=== PATIENT | female | born 1970 | race Caucasian/White ===

== ENCOUNTER 2016-12-08 16:14 | Emergency (ER) | payer OTHER ==
[~2016-12-08] VITALS: Ht 157.5 cm; Wt 135.0 kg
[2016-12-08 16:15] VITALS: BP 230/118; PULSE 105; RESP 20; TEMP 98.9; O2SAT 98
--- NOTE | 2016-12-08 16:28 | PD ---
Physical Exam Time Seen by Provider: 16:26 Narrative 46yo F c/o cyst to R inner, upper thigh for the past few days with worsening. Denies drainage. Denies fever, vomiting. BP rechecked in triage. Has not taken BP medication in over a year because she cannot afford them. Patient seen in triage. VS reviewed. Awaiting bed placement. Data Data Last Documented VS Vital Signs Date Time Temp Pulse Resp B/P Pulse Ox O2 Delivery O2 Flow Rate FiO2 12/08/16 16:15 98.9 105 20 230/118 98 Room Air MDM Supervised Visit with MOISES: Cynthia Rice Dec 08, 2016 16:28
[2016-12-08 17:06] VITALS: BP 216/106
--- NOTE | 2016-12-08 17:38 | PD ---
HPI . right inner thigh cellulitis/abscess Chief Complaint: Skin Problem Time Seen by Provider: 17:34 Travel History International Travel<30 days: No Contact w/Intl Traveler<30days: No Traveled to known affect area: No History of Present Illness HPI 46-year-old female here with complaints of a right inner thigh possible abscess. She tells me has been present for the past 3 days. She thinks it's getting larger. She denies any possible insect bite or trauma to the area. She denies any fever or chills. She has no other complaints. PFSH Past Medical History ?: Not Social History Tobacco Use: No Allergies-Medications Reported Meds & Prescriptions Reported Meds & Active Scripts Active Diflucan (Fluconazole) 150 Mg Tab 150 Mg PO ONCE Bactrim DS (Sulfamethoxazole-Trimethoprim) 800-160 Mg Tab 1 Tab PO BID Review of Systems General / Constitutional: No: Fever Eyes: No: Visual changes HENT: No: Headaches Cardiovascular: No: Chest Pain or Discomfort Respiratory: No: Shortness of Breath Gastrointestinal: No: Abdominal Pain Genitourinary: No: Dysuria Musculoskeletal: No: Pain Skin: Positive Other (right inner thigh redness and swelling), No Rash Neurologic: No: Weakness Psychiatric: No: Depression Endocrine: No: Polydipsia Hematologic/Lymphatic: No: Easy Bruising Physical Exam Narrative GENERAL: AAO x 3, no acute distress, Well-nourished, well-developed patient. SKIN: Warm and dry. No visible rashes or bruising. right inner thigh with 3 cm induration with surround zone of inflammation, small 0.5 cm area of fluctuance, + erythema and warmth to the area. no streaking HEAD: Normocephalic and atraumatic. EYES: No scleral icterus. No injection or drainage. ENT: No nasal drainage noted. Mucous membranes pink. Airway patent. NECK: Supple, trachea midline. No JVD. CARDIOVASCULAR: Regular rate and rhythm without murmurs, gallops, or rubs. RESPIRATORY: Breath sounds equal bilaterally. No accessory muscle use. No rhonchi or rales. GASTROINTESTINAL: Abdomen soft, non-tender, nondistended. EXTREMITIES: No cyanosis or edema. BACK: Nontender without obvious deformity. No CVA tenderness. PSYCH: AAO x 3, normal affect. Data Data Last Documented VS Vital Signs Date Time Temp Pulse Resp B/P Pulse Ox O2 Delivery O2 Flow Rate FiO2 12/08/16 17:06 216/106 12/08/16 16:15 98.9 105 20 98 Room Air MDM Medical Decision Making Medical Screen Exam Complete: Yes Emergency Medical Condition: Yes Medical Record Reviewed: Yes Differential Diagnosis cellulitis, early abscess, less likely shingles Narrative Course This is a 46-year-old female here with a right inner thigh cellulitis and early abscess formation. Patient is not very fond of incision and drainage and would like to try outpatient oral antibiotics. We have discussed worsening signs of infection and when to return to the emergency department. I've advised her if the area starts to worsen or if it gets larger, that she needs to return for incision and drainage. In the meantime I will give her some Bactrim to cover MRSA. I've asked nurses for a bp recheck prior to dc. I also recommend outpatient f/ u. Patient requested Diflucan, which was provided. Patient verbalized understanding of instructions, questions were answered, and thanked me for their care. I advised them if their condition worsens, please return to the nearest emergency room for further care. Diagnosis Primary Impression: Cellulitis Qualified Code: L03.115 - Cellulitis of right lower extremity Additional Impression: Elevated blood pressure reading without diagnosis of hypertension Patient Instructions: Cellulitis (ED), General Instructions, Hypertension (ED) Additional Instructions: Jackson for worsening signs of infection which include fever, increased redness , increased warmth, purulent drainage, increased swelling or streaking. If any of these develop, please go to the nearest emergency room. Please return to emergency department if your symptoms return or worsen. Follow up with your primary care provider. Take medications as prescribed. You can try to use warm compresses to the area to see if a head develops. If it does, you can come back to the emergency department to have it drained. Please have your blood pressured followed by your primary care doctor. Med/Other Pt SpecificInfo: Prescription(s) given Scripts Fluconazole (Diflucan)150 Mg Kvs004 Mg PO ONCE #1 TAB Ref 0 Prov:Simeon Interiano MD 12/08/16 Sulfamethoxazole-Trimethoprim (Bactrim DS)800-160 Mg Tab1 Tab PO BID #20 TAB Prov:Simeon Interiano MD 12/08/16 Disposition: 01 DISCHARGE HOME Condition: Stable Crystal Patel Dec 08, 2016 17:38
[2016-12-08] MEDS ORDERED: BACT800T5 PO (17:39)
[2016-12-08] MEDS ORDERED: DIFL150T PO (17:49)
[2016-12-08] MEDS ORDERED: AMLO10TA2 PO (18:28)
== END 2016-12-08 18:36 | disposition home or self-care (01) ==
LOC: NEPD 16:14
DX: L03.115 Cellulitis of right lower limb (principal); R03.0 Elevated blood-pressure reading, without diagnosis of hypertension
CPT/HCPCS: 99284

== ENCOUNTER 2018-06-12 22:24 | Observation (INO) ==
[2018-06-13] MEDS ORDERED: Acetaminophen 500 MG Tablet PO PRN (08:03)
[2018-06-13] MEDS ORDERED: Morphine Sulfate Inj 2 MG/ML Vial IV.PUSH PRN (08:03)
[2018-06-13 09:01] LABS: Anion Gap 6 meq/L (5-15); Blood Urea Nitrogen 23 mg/dL (7-18); Calcium 8.7 mg/dL (8.5-10.1); Carbon Dioxide 26.3 meq/L (21.0-32.0); Chloride 110 meq/L (98-107); Glomerular Filtration Rate 42 mL/min (>89); Glucose,Random 119 mg/dL (74-106); Potassium 3.9 meq/L (3.5-5.1); Sodium 142 meq/L (136-145)
[2018-06-13 09:09] LABS: Creatine Kinase 46 U/L (26-192)
--- NOTE | 2018-06-13 10:21 | P.HP ---
History of Present Illness Primary Care Physician: No Primary Care Physician Chief Complaint: Chest pain History of Present Illness: 47-year-old female with history of hypertension, diverticulosis, tobacco use, presents with a 1 day history of chest pain. Patient reports her symptoms started on 06/11/18, when she first noticed that she went to oyster picker something with her right hand, and it felt slightly numb, tingly, and weak. She states she shook it off, and a few seconds later she was able to oyster picker the object and her symptoms resolved. She took her blood pressures and her systolic was in the 230s therefore she took extra antihypertensives that she is prescribed. The next day on Tuesday 06/12, her blood pressure was still in the 200s/100s, she again took her blood pressure medications with no relief. She then noticed some substernal chest pain described as an "aching" 3/10 pain with some associated numbness and tingling down the left hand; denies any shortness of breath, nausea, or diaphoresis. The chest pain prompted her to come to the ER. She admits to noncompliance with her antihypertensives, and typically takes them as needed. She denies any other medical complaints including no headache, lightheadedness, dizziness, visual changes, palpitations, shortness of breath, or abdominal complaints. She denies any cardiac history. She believes she had a walking treadmill stress test at least 3 years ago that was unremarkable. She does continue to smoke tobacco and she admits to being under increased stress lately with her fiance. Review of Systems All other systems reviewed negative except as stated in [facility] - History History Provided By: Patient - Medical History Medical History: Medical History (Last Reviewed 06/13/18 @ 14:10 by Arelis Benjamin) Diverticulitis HTN (hypertension) - Surgical History Surgical History: Surgical History (Last Reviewed 06/12/18 @ 22:45 by Naomi Reed RN) Hx of partial thyroidectomy - Family History Family History: Family History (Last Updated 06/13/18 @ 14:10 by Arelis Benjamin) Father Heart disease Mother Thyroid disease - Social History I have reviewed the patient's Social History: Yes - Tobacco History Tobacco Use In Past 30 Days: Yes Smoking Status: Current every day smoker (07/07 to 07/05 PPD) Tobacco Type: Cigarettes - Alcohol History How Often Do You Have a Drink Containing Alcohol: 2 to 4 times a month - Substance Use History Substance History: No History of Abuse Medications and Allergies Active Medications: Active Medications Acetaminophen (Tylenol) 500 mg PO Q4H PRN PRN Reason: headache/fever/pain1-4 Aspirin (Aspirin) 325 mg PO DAILY MECCA Sodium Chloride (Ns Inj) 1,000 mls @ 100 mls/hr IV.CONT .Q10H MECCA Morphine Sulfate (Morphine Inj) 2 mg IV.PUSH Q3H PRN PRN Reason: chest pain/breakthrough pain Nitroglycerin (Nitrostat Sl) 0.4 mg SL Q5M PRN PRN Reason: ANGINA Sodium Chloride (Ns Flush) 2 ml IV.FLUSH BID MECCA Sodium Chloride (Ns Flush) 2 ml IV.FLUSH PRN PRN PRN Reason: FLUSH AFTER USING IV ACCESS Allergies Allergy/AdvReac Type Severity Reaction Status Date / Time No Known Allergies Allergy Verified 06/12/18 23:00 Home Medications Medication Instructions Recorded Confirmed Type cyclobenzaprine 10 mg PO HS 06/12/18 06/13/18 History hydrochlorothiazide 25 mg PO DAILY 06/12/18 06/13/18 History lisinopril 10 mg PO DAILY 06/12/18 06/13/18 History Exam Vital signs: Vital Signs 06/13/18 07:40 Pulse Rate 75 Respiratory Rate 20 Blood Pressure 145/94 H Pulse Oximetry 99 Narrative: GENERAL: Well-nourished, well-developed pleasant obese female patient in [facility]. SKIN: Warm and dry. No rash. HEENT: Normocephalic. Atraumatic. Pupils equal and round. Mucous membranes pink and moist. NECK: Supple. Trachea midline. CARDIOVASCULAR: Regular rate and rhythm. No murmur appreciated. RESPIRATORY: No accessory muscle use. Clear to auscultation. Breath sounds equal bilaterally. GASTROINTESTINAL: Abdomen soft, non-tender, nondistended. Normoactive bowel sounds x4. MUSCULOSKELETAL: No obvious deformities. Extremities without clubbing, cyanosis , or edema. NEUROLOGICAL: Awake and alert. No obvious cranial nerve deficits. Moving all extremities spontaneously. Normal speech. PSYCHIATRIC: Appropriate mood and affect; insight and judgment normal. Results - Labs CBC & Chem 7: 06/13/18 08:35 Labs: Laboratory Results - last 24 hr 06/13/18 08:35 Sodium 142 Potassium 3.9 Chloride 110 H Carbon Dioxide 26.3 Anion Gap 6 BUN 23 H Creatinine 1.35 H Estimated GFR 42 L Random Glucose 119 H Calcium 8.7 Total Creatine Kinase 46 Troponin I Less than 0.02 L - Imaging Chest CTA 06/13/18 00:00 CONCLUSION: 1. This study is negative for pulmonary embolism. 2. Hypoaerated lungs 3. No evidence of acute airspace disease or congestion. Caprini VTE Risk Assessment Caprini VTE Risk Assessment: No/Low Risk (score <= 1) Caprini Risk Assessment Model: Point Value = 1 Point Value = 2 Point Value = 3 Point Value = 5 Age 41-60 Minor surgery BMI > 25 kg/m2 Swollen legs Varicose veins or History of unexplained or recurrent spontaneous Oral contraceptives or hormone replacement Sepsis (< 1 month) Serious lung disease, including pneumonia (< 1 month) Abnormal pulmonary function Acute myocardial infarction Congestive heart failure (< 1 month) History of inflammatory bowel disease Medical patient at bed rest Age 61-74 Arthroscopic surgery Major open surgery (> 45 min) Laparoscopic surgery (> 45 min) Malignancy Confined to bed (> 72 hours) Immobilizing plaster cast Central venous access Age >= 75 History of VTE Family history of VTE Factor V Leiden Prothrombin [id number] Lupus anticoagulant Anticardiolipin antibodies Elevated serum homocysteine Heparin-induced thrombocytopenia Other congenital or acquired thrombophilia Stroke (< 1 month) Elective arthroplasty Hip, pelvis, or leg fracture Acute spinal cord injury (< 1 month) Prophylaxis Regimen: Total Risk Factor Score Risk Level Prophylaxis Regimen 0-1 Low Early ambulation 2 Moderate Order ONE of the following: *Sequential Compression Device (SCD) *Heparin 5000 units SQ BID 3-4 Higher Order ONE of the following medications: *Heparin 5000 units SQ TID *Enoxaparin/Lovenox 40 mg SQ daily (WT < 150 kg, CrCl > 30 mL/min) *Enoxaparin/Lovenox 30 mg SQ daily (WT < 150 kg, CrCl > 10-29 mL/min) *Enoxaparin/Lovenox 30 mg SQ BID (WT < 150 kg, CrCl > 30 mL/min) AND/OR *Sequential Compression Device (SCD) 5 or more Highest Order ONE of the following medications: *Heparin 5000 units SQ TID (Preferred with Epidurals) *Enoxaparin/Lovenox 40 mg SQ daily (WT < 150 kg, CrCl > 30 mL/min) *Enoxaparin/Lovenox 30 mg SQ daily (WT < 150 kg, CrCl > 10-29 mL/min) *Enoxaparin/Lovenox 30 mg SQ BID (WT < 150 kg, CrCl > 30 mL/min) AND *Sequential Compression Device (SCD) Assessment and Plan - Plan 47-year-old female with history of hypertension, diverticulosis, tobacco use, presents with a 1 day history of chest pain. Chest pain: Atypical, suspect secondary to cardiac demand from hypertensive urgency, however rule out ACS, PE, and other etiologies. -D-dimer elevated 0.82, checking CT pulmonary angiogram -Initial troponin negative, will continue to trend cardiac enzymes -EKG reviewed, no acute ischemic changes -Give aspirin, nitro prn, IV morphine prn -Monitor on telemetry -plan for Lexiscan if troponins negative Hypertensive Urgency: patient reporting BP of 230/133 at home. -Upon arrival to [facility], BP 222/123, s/p clonidine 0.2mg and nitropaste -Continue patient's HCTZ 25mg qd, and increased patient's lisinopril to 10mg bid -Clonidine prn -Monitor BP, adjust antihypertensives as needed Hx of Thyroidectomy: chronic, patient unsure if she is supposed to be on thyroid hormone replacement -check TSH/T4 -needs to continue outpatient f/up with PCP Tobacco Use: chronic -counseled on cessation -avoid nicotine patch until ACS is ruled out DVT Prophylaxis: Lovenox sq
--- NOTE | 2018-06-13 11:05 | CT ---
EXAM DATE: 06/13/2018 11:01 AM EST AGE/SEX: 47 years / Female INDICATIONS: Chest pain. Left arm numbness. CLINICAL DATA: This is the patient's initial encounter. Patient reports that signs and symptoms have been present for 1 day and indicates a pain score of 1/10. MEDICAL/SURGICAL HISTORY: Diverticulitis. Hypertension. Thyroidectomy. RADIATION DOSE: 30.76 CTDI (mGy) COMPARISON: No prior exams available for comparison. TECHNIQUE: Volumetric scanning was performed using a multi-row detector CT scanner during bolus infu demian of 72 ml Omnipaque 350 (iohexol) nonionic water-soluble contrast as a single exam dose. The yoko a was post processed with a variety of visualization algorithms including full volume maximum intensi ty projection and sliding thin slab reformation. Using automated exposure control and adjustment of t he mA and/or kV according to patient size, radiation dose was kept as low as reasonably achievable to obtain optimal diagnostic quality images. DICOM format image data is available electronically for r eview and comparison. FINDINGS: Pulmonary Arteries: No filling defects are seen in the pulmonary arteries out to the subsegmental ve ssels. The left and right pulmonary arteries are normal in diameter. Lung: No infiltrates seen. Effusion: None. Mediastinum: No evidence of mediastinal or hilar adenopathy. Other: The axilla is unremarkable. CONCLUSION: 1. This study is negative for pulmonary embolism. 2. Hypoaerated lungs 3. No evidence of acute airspace disease or congestion. Electronically signed by: Cali Sifuentes MD 06/13/2018 11:04 AM EST
[2018-06-13] MEDS: Sod Chloride 0.9% Inj 1,000 ML IV.CONT SCH ×2 (11:45→20:43)
[2018-06-13] MEDS: Aspirin 325 MG Tablet PO SCH (11:46)
--- NOTE | 2018-06-13 12:16 | ECG ---
Date Performed: 06/13/2018 Time Performed: 08:28:41 PTAGE: 47 years EKG: Sinus rhythm MODERATE INTRAVENTRICULAR CONDUCTION DELAY ST DEVIATION AND MODERATE T-WAVE ABNORMALITY, CONSIDER LA TERAL ISCHEMIA ABNORMAL ECG INTERPRETATION BASED ON A DEFAULT AGE OF 40 YEARS NO PREVIOUS TRACING DOCTOR: Boris Trevino Interpretating Date/Time 06/13/2018 12:15:33
[2018-06-13] MEDS ORDERED: Lisinopril 10 MG Tablet PO SCH ×2 (13:15→21:00)
[2018-06-13] MEDS: hydroCHLOROthiazide 25 MG Tablet PO SCH (13:31)
[2018-06-13 14:45] LABS: Creatine Kinase 36 U/L (26-192)
[2018-06-13 15:03] LABS: Free T4 (Free Thyroxine) 0.9 ng/dL (0.76-1.46); Thyroid Stimulating Hormone 1.93 uIU/mL (0.358-3.740)
[2018-06-13] MEDS ORDERED: Enoxaparin Inj 40 MG/0.4 ML Syringe SQ SCH (21:00)
[2018-06-14 04:16] VITALS: TEMP 97.8
[2018-06-14] MEDS: Sod Chloride 0.9% Inj 1,000 ML IV.CONT SCH (05:43)
[2018-06-14 08:02] LABS: Baso % (Auto) 0.6 % (0.0-2.0); Eos # (Auto) 0.2 th/mm3 (0.0-0.4); Eos % (Auto) 2.1 % (0.0-4.0); Hematocrit 41.1 % (35.0-46.0); Hemoglobin 13.9 gm/dL (11.6-15.3); Lymph # (Auto) 2.2 th/mm3 (1.0-4.8); Lymph % (Auto) 27.8 % (9.0-44.0); Mean Corpuscular HGB Conc 33.8 % (32.0-36.0); Mean Corpuscular Hemoglobin 29.8 pg (27.0-34.0); Mean Corpuscular Volume 88.4 fL (80.0-100.0); Mean Platelet Volume 10.5 fL (7.0-11.0); Mono # (Auto) 0.3 th/mm3 (0.0-0.9); Mono % (Auto) 4.2 % (0.0-8.0); Neut # (Auto) 5.1 th/mm3 (1.8-7.7); Neut % (Auto) 65.3 % (16.0-70.0); Platelet Count 146 th/mm3 (150-450); Red Blood Count 4.65 mil/mm3 (4.00-5.30); Red Cell Distribution Width 14.8 % (11.6-17.2); White Blood Count 7.8 th/mm3 (4.0-11.0)
[2018-06-14] MEDS ORDERED: Regadenoson Inj 0.4 MG/5 ML Syringe IV.PUSH ONE (08:24)
[2018-06-14 08:41] LABS: Calcium 8.9 mg/dL (8.5-10.1); Carbon Dioxide 32.1 meq/L (21.0-32.0)
[2018-06-14 08:44] LABS: Potassium 4.5 meq/L (3.5-5.1)
[2018-06-14] MEDS ORDERED: Lisinopril 20 MG Tablet PO SCH (09:00)
--- NOTE | 2018-06-14 11:08 | NM ---
EXAM DATE: 06/14/2018 10:37 AM EST AGE/SEX: 47 years / Female INDICATIONS:Angina. . Chest pain. CLINICAL DATA: This is the patient's initial encounter. Patient reports that signs and symptoms have been present for 1 day and indicates a pain score of 2/10. MEDICAL/SURGICAL HISTORY: Hypertension. Thyroidectomy. COMPARISON: No prior exams available for comparison. No external comparison. DOSE: 30.2 mCi Tc 99m Myoview at rest 30.1 mCi [id number] at stress 0.4 mg Lexiscan STRESS SYMPTOMS: Chest pressure. EJECTION FRACTION: 59 % TECHNIQUE: The patient underwent pharmacologic stress with infusion of prescribed dose. Continuous ECG tracing was monitored during stress. Gated SPECT imaging was performed after stress and conventi onal SPECT imaging was performed at rest. The examination was performed on a SPECT/CT scanner, both attenuation and non-corrected datasets were reviewed. Two day protocol was used. FINDINGS: Distribution: The maximum perfused segment at stress is in the anterior lateral wall. Perfusion Study: The pattern of perfusion at stress is within normal limits. There is a summed str ess score of 2. Gated Study: There are intact wall motion and wall thickening without hypokinetic or dyskinetic segm ents. The ejection fraction is calculated at 59%. RISK CATEGORY: Low (<1% Annual Motality Rate) CONCLUSION: 1. Normal wall motion and calculated ejection fraction of 59%. 2. No fixed or reversible wall defects to suggest ischemia or infarction. Electronically signed by: Nando Marie MD 06/14/2018 11:07 AM EST
[2018-06-14] MEDS: Aspirin 325 MG Tablet PO SCH (11:21)
[2018-06-14] MEDS: hydroCHLOROthiazide 25 MG Tablet PO SCH (11:21)
--- NOTE | 2018-06-14 11:40 | P.PN ---
Subjective Interval history: Follow-up for chest pain, hypertensive urgency. Patient reports feeling anxious today and wants to go home. She denies any further chest pain or shortness of breath. She denies any other new medical complaints including no headache, lightheadedness, dizziness, fever/chills, or abdominal complaints. Blood pressure still uncontrolled. Physical Exam Vital signs: Vital Signs 06/13/18 14:49 06/13/18 16:33 06/13/18 20:00 Temperature 98.3 F 97.9 F Pulse Rate 68 68 Respiratory Rate 20 20 Blood Pressure 159/89 H 154/88 H 225/115 H Pulse Oximetry 99 96 06/13/18 20:07 06/13/18 21:30 06/13/18 22:28 Temperature Pulse Rate Respiratory Rate 18 Blood Pressure 180/100 H 130/80 Pulse Oximetry 06/14/18 00:00 06/14/18 04:00 Temperature 98.3 F 97.8 F Pulse Rate 70 72 Respiratory Rate 20 17 Blood Pressure 190/99 H 170/92 H Pulse Oximetry 99 97 Intake & Output 06/13/18 06/14/18 06/14/18 18:59 06:59 18:59 Intake Total 950 / 950 1999 Balance 950 / 950 1999 Weight 126 kg Intake: IV 1999 NS Inj 1,000 ML @ 100 mls/hr IV 1999 .CONT .Q10H MECCA Rx#:[id number] Oral 950 / 950 Other: # Voids 3 Weight On Admission 126 kg Narrative: GENERAL: Well-nourished, well-developed pleasant obese female patient in [facility]. SKIN: Warm and dry. No rash. HEENT: Normocephalic. Atraumatic. Pupils equal and round. Mucous membranes pink and moist. CARDIOVASCULAR: Regular rate and rhythm. No murmur appreciated. RESPIRATORY: No accessory muscle use. Clear to auscultation. Breath sounds equal bilaterally. GASTROINTESTINAL: Abdomen soft, non-tender, nondistended. Normoactive bowel sounds x4. MUSCULOSKELETAL: No obvious deformities. Extremities without clubbing, cyanosis , or edema. NEUROLOGICAL: Awake and alert. No obvious cranial nerve deficits. Moving all extremities spontaneously. Normal speech. PSYCHIATRIC: Slightly anxious; insight and judgment normal. Results - Labs CBC & Chem 7: 06/14/18 07:07 06/14/18 07:07 Laboratory Results - last 24 hr 06/13/18 06/13/18 06/14/18 08:35 14:11 07:07 WBC 7.8 RBC 4.65 Hgb 13.9 Hct 41.1 MCV 88.4 MCH 29.8 MCHC 33.8 RDW 14.8 Plt Count 146 L MPV 10.5 Neut % (Auto) 65.3 Lymph % (Auto) 27.8 Mcmullen % (Auto) 4.2 Eos % (Auto) 2.1 Baso % (Auto) 0.6 Neut # (Auto) 5.1 Lymph # (Auto) 2.2 Mcmullen # (Auto) 0.3 Eos # (Auto) 0.2 Baso # (Auto) 0.0 WBC Differential . Differential Comment Auto diff final Sodium Potassium Chloride Carbon Dioxide Anion Gap BUN Creatinine Estimated GFR Random Glucose Calcium Total Creatine Kinase 36 Troponin I Less than 0.02 L TSH 1.930 Free T4 0.90 06/14/18 07:07 WBC RBC Hgb Hct MCV MCH MCHC RDW Plt Count MPV Neut % (Auto) Lymph % (Auto) Mcmullen % (Auto) Eos % (Auto) Baso % (Auto) Neut # (Auto) Lymph # (Auto) Mcmullen # (Auto) Eos # (Auto) Baso # (Auto) WBC Differential Differential Comment Sodium 141 Potassium 4.5 Chloride 105 Carbon Dioxide 32.1 H Anion Gap 4 L BUN 19 H Creatinine 1.21 H Estimated GFR 48 L Random Glucose 112 H Calcium 8.9 Total Creatine Kinase Troponin I TSH Free T4 - Imaging Impressions Myocardial Perfusion Scan Nuc Med 06/13/18 14:00 CONCLUSION: 1. Normal wall motion and calculated ejection fraction of 59%. 2. No fixed or reversible wall defects to suggest ischemia or infarction. Assessment and Plan - Plan 47-year-old female with history of hypertension, diverticulosis, tobacco use, presents with a 1 day history of chest pain. Chest pain: Atypical, suspect secondary to cardiac demand from hypertensive urgency, however rule out ACS, PE, and other etiologies. -D-dimer elevated 0.82, checking CT pulmonary angiogram -Initial troponin negative, will continue to trend cardiac enzymes -EKG reviewed, no acute ischemic changes -Give aspirin, nitro prn, IV morphine prn -Monitor on telemetry -Lexiscan negative -No further episodes of chest pain, resolved. Hypertensive Urgency: patient reporting BP of 230/133 at home. -Upon arrival to [facility] ER, BP 222/123, s/p clonidine 0.2mg and nitropaste -Continue patient's HCTZ 25mg qd, and increased patient's lisinopril to 20mg bid -Added Norvasc 10 mg daily -Clonidine prn -Monitor BP, adjust antihypertensives as needed Hx of Thyroidectomy: chronic, patient unsure if she is supposed to be on thyroid hormone replacement -TSH/T4 within normal limits -needs to continue outpatient f/up with PCP Tobacco Use: chronic -counseled on cessation -avoid nicotine patch DVT Prophylaxis: Lovenox sq Discharge Planning: Plan to discharge home when blood pressure is better controlled. Discharge patient to home Condition on discharge: Stable Heart healthy diet as tolerated Ad Jina activity Rx written: HCTZ 25 mg daily, lisinopril 20 mg twice daily, Norvasc 10 mg daily Follow-up with primary care physician
[2018-06-14 12:34] VITALS: PULSE 70; RESP 16; O2SAT 96
[2018-06-14] MEDS ORDERED: amLODIPine 10 MG Tablet PO SCH (13:45)
[2018-06-14 16:13] VITALS: BP 139/80
--- NOTE | 2018-06-14 22:25 | ECG ---
Date Performed: 06/13/2018 Time Performed: 19:59:31 PTAGE: 47 years EKG: Sinus rhythm MODERATE VOLTAGE CRITERIA FOR LVH, WITH ST-T WAVE CHANGES ABNORMAL ECG PREVIOUS TRACING : 06/13/2018 08.28 Since the previous tracing, no significant change noted DOCTOR: Luis Eduardo Mancilla Interpretating Date/Time 06/14/2018 22:24:31
== END 2018-06-14 17:08 | disposition home or self-care (01) ==
LOC: NEDDLT 22:24 → NEPHCDU 22:24
PROVIDERS: ADMIT Internal Medicine; ATTEND Internal Medicine